=== PATIENT | male | born 1970 | race Caucasian/White ===

== ENCOUNTER 2018-05-21 17:54 | Emergency (ER) | payer MEDICAID ==
--- NOTE | 2018-05-21 18:19 | EDPHY ---
H & P Stated Complaint: ST, fever Source: Patient Exam Limitations: No limitations - Personal History Current Tetanus/Diphtheria Vaccine: Yes Current Tetanus Diphtheria and Acellular Pertussis (TDAP): Yes - Medical/Surgical History Hx Asthma: No Hx Chronic Respiratory Disease: No Hx Diabetes: No Hx Cardiac Disease: No Hx Renal Disease: No Hx Cirrhosis: No Hx Alcoholism: No Hx HIV/AIDS: No Hx Splenectomy or Spleen Trauma: No Other PMH: UC, - Social History Smoking Status: Never smoked Time Seen by Provider: 05/21/18 18:18 HPI/ROS: HPI: This is a 47-year-old male who presents with Chief Complaint: Sore throat, fever Location: body Quality: Fever Duration: 1-2 weeks Signs and Symptoms: + fever, no nausea, no vomiting, no diarrhea, no urinary symptoms, no chest pain, no shortness of breath, no wheezing, no cough, + sore throat, no neck stiffness, no joint pain, no swollen glands, no ear pain, no rash Timing: Acute, constant Severity: Moderate Context: Patient has a history of ulcerative colitis but has not been on any suppressive therapy for the last 5 years presents with 1-2 week history of fevers with a T-max of a 102.6 oral F, sore throat and raspy voice. Reports decreased food intake but drinking Gatorade. He complains of fatigue. Denies any neck stiffness, swollen glands, difficulty swallowing, drooling, joint pain , rash, chest pain, shortness of breath, cough, diarrhea. No recent foreign travel. Did not receive influenza vaccine this year. Patient recently moved to the area and has no primary care provider. Modifying Factors: Taking Tylenol p.m. With transient relief of pyrexia Comment: ROS: A comprehensive 10 system review of systems is otherwise negative aside from elements mentioned in the history of present illness. MEDICAL/SURGICAL/SOCIAL HISTORY: Medical history: Ulcerative colitis Surgical history: Denies Social history: Never smoked. Family history noncontributory. CONSTITUTIONAL: Nontoxic-appearing middle-aged white male, significant other at bedside, awake and alert, no obvious distress HEENT: Atraumatic and normocephalic, PERRL, EOMI. Nares patent; no rhinorrhea; no nasal mucosal edema. Tympanic membranes clear. Oropharynx clear, tonsils 1 + with no erythema; uvula midline; no exudate and moist pink mucosa. Airway patent. No lymphadenopathy. No meningismus. Cardiovascular: Normal S1/S2, tachycardia, regular rhythm, without murmur rub or gallop. PULMONARY/CHEST: Symmetrical and nontender. Clear to auscultation bilaterally. Good air movement. No accessory muscle usage. ABDOMEN: Soft, nondistended, nontender, no rebound, no guarding, no peritoneal signs, no masses or organomegaly. No CVAT. EXTREMITIES: 2/2 pulses, strength 5/5, no deformities, no clubbing, no cyanosis or edema. NEUROLOGICAL: no focal neuro deficits. GCS 15. SKIN: Warm and dry, no erythema. no rash. Good capillary refill. (Ara Park) Constitutional: Initial Vital Signs Temperature (C) 36.9 C 05/21/18 18:01 Heart Rate 151 H 05/21/18 18:01 Respiratory Rate 20 05/21/18 18:01 Blood Pressure 105/78 05/21/18 18:01 O2 Sat (%) 97 05/21/18 18:01 O2 Delivery Mode Room Air Allergies/Adverse Reactions: acetaminophen [From NyQuil] Allergy (Verified 05/21/18 18:01) dextromethorphan [From NyQuil] Allergy (Verified 05/21/18 18:01) doxylamine [From NyQuil] Allergy (Verified 05/21/18 18:01) pseudoephedrine [From NyQuil] Allergy (Verified 05/21/18 18:01) Home Medications: Medication Instructions Recorded Omeprazole 05/21/18 Tylenol Cold-Flu Severe Liq 05/21/18 Medical Decision Making ED Course/Re-evaluation: Vital signs reviewed and show tachycardia with a heart rate of 151. Placed on residential monitor. Patient did not meet sepsis criteria. IV access and laboratory studies along with influenza swab and rapid strep test ordered Given 2 L normal saline, IV Toradol 30 mg, IV Decadron 10 mg Abdomen is soft and nontender and doubt surgical process and need for imaging. 0: Labs reviewed. Strep negative, WBC 14 K with left shift, lactic acid 2.3 , No signs of anemia/platelet dysfunction/ANGELLA/elevated LFTs/electrolyte imbalance. 1939: Influenza negative. 2009: Notified by tech that patient asking to eat food and drink liquids. Heart rate is in the low 90s but jumped up to the 130s with a ambulation. Patient will be given food and drink along with another L of normal saline for a total of 3 L 2115: Repeat lactic acid is 1.0 Vital signs greatly improved at discharge. It appears that patient has a viral syndrome and will be discharged home with supportive care. Referral to the [facility]. This patient was seen under the supervision of my secondary supervising physician. I evaluated care for this patient independently. Discussed this patient with Dr. Brantley who did not see the patient. (Ara Park) I did not see this patient while he was in the emergency department. However his care was discussed with the PA while the patient was in the department. I agree with treatment plan and management (Terry Brantley) Differential Diagnosis: Adult fever including but not limited to viral syndromes including influenza, urinary tract infection, pneumonia and sepsis. (Ara Park) - Data Points Laboratory Results: Laboratory Results 05/21/18 18:20 05/21/18 18:20 Medications Given: Discontinued Medications Dexamethasone (Decadron Injection) 10 mg IVP EDNOW ONE Stop: 05/21/18 18:31 Last Admin: 05/21/18 18:40 Dose: 10 mg Sodium Chloride (Ns) 1,000 mls @ 0 mls/hr IV ONCE ONE; Wide Open PRN Reason: Protocol Stop: 05/21/18 18:31 Last Admin: 05/21/18 18:40 Dose: 1,000 mls Sodium Chloride (Ns) 1,000 mls @ 0 mls/hr IV ONCE ONE; Wide Open PRN Reason: Protocol Stop: 05/21/18 18:31 Last Admin: 05/21/18 18:40 Dose: 1,000 mls Sodium Chloride (Ns) 1,000 mls @ 0 mls/hr IV EDNOW ONE; Wide Open PRN Reason: Protocol Stop: 05/21/18 20:11 Last Admin: 05/21/18 20:11 Dose: 1,000 mls Ketorolac Tromethamine (Toradol) 30 mg IVP EDNOW ONE Stop: 05/21/18 18:31 Last Admin: 05/21/18 18:40 Dose: 30 mg Departure - Departure Disposition: Home, Routine, Self-Care Clinical Impression: Viral syndrome Condition: Good Instructions: Viral Syndrome (ED) Additional Instructions: Consume a minimum of 8-10 glasses of water or electrolyte fluid replacement drinks that include Gatorade, Powerade, Pedialyte. Eat a bland diet for the next 48 hours and then slowly advance as tolerated. Take Tylenol 650 mg every 4 hours and/or Ibuprofen 600 mg every 8 hours with food as needed for pain. [facility] care. It is recommended that you follow-up in the next 7-10 days. Referrals: [facility],. [Clinic] - As per Instructions
[2018-05-21] MEDS ORDERED: KETOROLAC 30 MG/1 ML SDV IVP ONE (18:30)
[2018-05-21] MEDS ORDERED: DEXAMETHASONE 10 MG/ML VIAL IVP ONE (18:30)
[2018-05-21] MEDS ORDERED: NS 1,000 ML IV ONE ×4 (18:30→20:11)
[2018-05-21] MEDS ORDERED: DEXAMETHASONE 4 MG/ML VIAL ONE (18:32)
[2018-05-21 18:48] LABS: PLATELET COUNT 477 10^3/uL (150-400)
[2018-05-21 20:12] VITALS: BP 125/80
== END 2018-05-21 21:30 | disposition home or self-care (01) ==
DX: B34.9 Viral infection, unspecified (principal); E86.9 Volume depletion, unspecified; K51.90 Ulcerative colitis, unspecified, without complications
CPT/HCPCS: 96374; J1100; J1885

== ENCOUNTER 2018-05-26 21:44 | Inpatient (IN) | payer MEDICAID ==
[2018-05-26 22:23] LABS: PLATELET COUNT 502 10^3/uL (150-400)
--- NOTE | 2018-05-26 22:24 | EDPHY ---
HPI/HX/ROS/PE/MDM Narrative: CHIEF COMPLAINT: Fever, weakness HISTORY OF PRESENT ILLNESS: The patient is a 47 y/o male arriving with his daughter complaining of recurrent fever, sore throat, and weakness over the last 3 weeks. He first developed a sore throat later associated with a fever as high as 102F 1.5 weeks into his illness. Symptoms worsened and on 05/21/18, 5 days ago, he came into the ED for evaluation. His flu and step swabs were negative and he was treated with Decadron, Toradol, and IV fluids with improvement in symptoms. He continued to have a "low" sore throat and malaise, but the fever seemed to resolve until last night, when it spiked to 101F. He took Tylenol for his fever with temporary improvement. He currently feels anxious and extremely weak with aching abdominal pain sometimes into his testicles as well as nausea. He has had difficulty eating and drinking. No history of thyroid issues. No rash, cough, chills, chest pain, shortness of breath, palpitations, vomiting , diarrhea, blood in stool, urinary complaints, headache, lightheadedness. REVIEW OF SYSTEMS: Aside from elements discussed in the HPI, a comprehensive 10-point review of systems was reviewed and is negative. PAST MEDICAL HISTORY: Ulcerative colitis - no immunosuppressants. SOCIAL HISTORY: Daughter at bedside. Lives in [place]. Single. Prior medical records reviewed including ED visit 05/21/18 for fever and sore throat. VITAL SIGNS: Reviewed by me. HR 147, BP 88/73. GENERAL: Well-developed, well-nourished, anxious-appearing in no respiratory distress. HEENT: Atraumatic. Eyes: No icterus, no injection. Mouth: moist mucous membranes. No erythema or lesions. No tonsillar swelling. Neck: supple with no adenopathy. Mild tenderness over lower anterior neck with questionable fullness. LUNGS: Clear to auscultation bilaterally, no wheezes, rhonchi or rales. CARDIAC: Tachycardic regular rate and rhythm, no rubs, murmurs or gallops. ABDOMEN: Soft, nontender, nondistended. BACK: No CVA tenderness. EXTREMITIES: No trauma. No edema. Range of motion is normal throughout. NEURO: Alert and oriented, grossly nonfocal. SKIN: Warm and dry, no rash. PSYCHIATRIC: Normal mentation, no agitation. Portions of this note were transcribed by a medical record retrieval specialist. I personally performed a history, physical exam, medical decision making, and confirmed accuracy of information the transcribed note. ED Course: This is a 47 y/o male with a 3-week history of malaise who returns for the 2nd time in 5 days with fever, sore throat, and weakness. He is anxious-appearing, tachycardic, hypotensive, and has mild low anterior neck tenderness. His abdomen is benign. Presentation concerning for thyrotoxicosis vs. infectious process. Patient rules in for initial sepsis screening with hypotension, tachycardia, and reported fever at home. Plan for IV, sepsis labs, thyroid function panel, UA, chest x-ray, and symptomatic management. WBC elevated at 21. Lactate 2.8. Possible severe sepsis declared at 22:30. 2.1L IV NS ordered. Concern for abdominal process related to his UC or something like lymphoma. Consulted with Dr. Philip, radiology. Plan for abdominal CT and chest CT to evaluate pain at base of neck. Labs returning and concern for hyperthyroidism/ thyroid storm as cause of patinets symptoms. Free T4 significantly elevated, TSH low. Will give small dose of propanolol; at this time hr has trended lower and is at 100 range. No source of fever and no infection identified. Sepsis Evaluation: Patient presented to the Emergency Department with a possible infection based on throat pain and history of fever. No fever in ED. Patient was tachycardic and had a WBC greater than 12,000 along with elevated lactic acid. Received IVF bolus at 30cc/kg. Repeat lactic acid ordered. Will admit to hospitalist. No antibiotics administered at this time; no infectious etiology identified or suspected at this time. Critical care time spent by me, Dr. Souza, exclusively with this patient was 35 minutes, exclusive of PA time and exclusive of procedures. The organ system at risk was multisystem. Time spent in serial assessments of patient, discussion with patient and family, consideration of interventions, consultation with radiology, review of lab and imaging results. MDM: Diff dx considered included severe sepsis, pneumonia, pharyngitis, thyroid storm , hyperthyroidism. - Data Points Imaging Results: Imaging Impressions Chest X-Ray 05/26/18 22:09 Impression: Normal. Abdomen CT 05/26/18 22:28 Impression: Thickened aryepiglottic folds. Otherwise negative. 2 CT Abdomen and Pelvis With Contrast, 22:46 History: Fever, abdominal discomfort, history of ulcerative colitis, elevated white count Technique: 128 slice volumetric data set helical CT obtained through the abdomen and pelvis during bolus administration of 90 mL Isovue-300 nonionic contrast without complication. Images are reviewed on the computer workstation. Dose reduction techniques were utilized. Comparison: None Findings: Neither kidney is obstructed. There is a nonobstructive left lower pole renal calculus and a posterior right upper pole 13 x 11 low density cortical-medullary lesion with overlying peripheral cortical thinning (with average Hounsfield units of 60).. There is no evidence of active colitis, bowel obstruction, ascites or free air. Abdomen- The liver and spleen are normal in size. There are scattered small low- density lesions in the liver that likely represent incidental cysts. There is no intrahepatic biliary obstruction, hepatic abscess or dominant hepatic mass. There is no extrahepatic biliary dilatation. The gallbladder and pancreas. The adrenal glands and retroperitoneum look normal. There is mild mural atherosclerotic disease of the normal sized abdominal aorta. There is no retroperitoneal or mesenteric adenopathy. Pelvis: Urinary bladder looks normal. There is no pelvic adenopathy or free fluid. There is no retroperitoneal or inguinal adenopathy. The SI joints look normal. Impression: 1. No evidence for active colitis or bowel obstruction. 2. Nonsimple cystic right renal lesion. Recommend nonemergent MRI of the kidneys without and with contrast for further evaluation and correlation with urinalysis. Differential diagnosis includes transitional neoplasm, complex cyst and pyelonephritis. 3. Nonobstructive left nephrolithiasis. Results discussed with Dr. Souza at 11:18 PM General information for patients regarding this examination can be found at [email or web address]. If you have questions or comments about this report, please contact me at (hospital) or [phone] (cell). Chest CT 05/26/18 22:46 Impression: Thickened aryepiglottic folds. Otherwise negative. 2 CT Abdomen and Pelvis With Contrast, 22:46 History: Fever, abdominal discomfort, history of ulcerative colitis, elevated white count Technique: 128 slice volumetric data set helical CT obtained through the abdomen and pelvis during bolus administration of 90 mL Isovue-300 nonionic contrast without complication. Images are reviewed on the computer workstation. Dose reduction techniques were utilized. Comparison: None Findings: Neither kidney is obstructed. There is a nonobstructive left lower pole renal calculus and a posterior right upper pole 13 x 11 low density cortical-medullary lesion with overlying peripheral cortical thinning (with average Hounsfield units of 60).. There is no evidence of active colitis, bowel obstruction, ascites or free air. Abdomen- The liver and spleen are normal in size. There are scattered small low- density lesions in the liver that likely represent incidental cysts. There is no intrahepatic biliary obstruction, hepatic abscess or dominant hepatic mass. There is no extrahepatic biliary dilatation. The gallbladder and pancreas. The adrenal glands and retroperitoneum look normal. There is mild mural atherosclerotic disease of the normal sized abdominal aorta. There is no retroperitoneal or mesenteric adenopathy. Pelvis: Urinary bladder looks normal. There is no pelvic adenopathy or free fluid. There is no retroperitoneal or inguinal adenopathy. The SI joints look normal. Impression: 1. No evidence for active colitis or bowel obstruction. 2. Nonsimple cystic right renal lesion. Recommend nonemergent MRI of the kidneys without and with contrast for further evaluation and correlation with urinalysis. Differential diagnosis includes transitional neoplasm, complex cyst and pyelonephritis. 3. Nonobstructive left nephrolithiasis. Results discussed with Dr. Souza at 11:18 PM General information for patients regarding this examination can be found at [email or web address]. If you have questions or comments about this report, please contact me at (hospital) or [phone] (cell). Imaging: Discussed imaging studies w/ corporate licensed broker Radiologist, I viewed and interpreted images myself Laboratory Results: Laboratory Results 05/26/18 22:15 05/26/18 22:15 05/26/18 05/26/18 05/26/18 23:13 22:15 22:15 WBC 21.49 10^3/uL H 10^3/uL (3.80-9.50) RBC 4.58 10^6/uL 10^6/uL (4.40-6.38) Hgb 13.0 g/dL L g/dL (13.7-17.5) Hct 38.2 % L % (40.0-51.0) MCV 83.4 fL fL (81.5-99.8) MCH 28.4 pg pg (27.9-34.1) MCHC 34.0 g/dL g/dL (32.4-36.7) RDW 11.9 % % (11.5-15.2) Plt Count 502 10^3/uL H 10^3/uL (150-400) MPV 8.8 fL fL (8.7-11.7) Neut % (Auto) 73.1 % % (39.3-74.2) Lymph % (Auto) 16.0 % % (15.0-45.0) Parmer % (Auto) 9.8 % % (4.5-13.0) Eos % (Auto) 0.4 % L % (0.6-7.6) Baso % (Auto) 0.2 % L % (0.3-1.7) Nucleat RBC Rel Count 0.0 % % (0.0-0.2) Absolute Neuts (auto) 15.71 10^3/uL H 10^3/uL (1.70-6.50) Absolute Lymphs (auto) 3.44 10^3/uL H 10^3/uL (1.00-3.00) Absolute Monos (auto) 2.11 10^3/uL H 10^3/uL (0.30-0.80) Absolute Eos (auto) 0.09 10^3/uL 10^3/uL (0.03-0.40) Absolute Basos (auto) 0.04 10^3/uL 10^3/uL (0.02-0.10) Absolute Nucleated RBC 0.00 10^3/uL 10^3/uL (0-0.01) Immature Gran % 0.5 % % (0.0-1.1) Immature Gran # 0.11 10^3/uL H 10^3/uL (0.00-0.10) RBC/WBC/PLT Morphology TNP Platelet Estimate TNP PT 16.2 SEC H SEC (12.0-15.0) INR 1.28 H (0.83-1.16) APTT 28.4 SEC SEC (23.0-38.0) VBG Lactic Acid 1.6 mmol/L mmol/L (0.7-2.1) Sodium Potassium Chloride Carbon Dioxide Anion Gap BUN Creatinine Estimated GFR Glucose Calcium Total Bilirubin Conjugated Bilirubin Unconjugated Bilirubin AST ALT Alkaline Phosphatase Total Protein Albumin TSH Free T4 Thyroxine (T4) 05/26/18 05/26/18 22:15 22:15 WBC RBC Hgb Hct MCV MCH MCHC RDW Plt Count MPV Neut % (Auto) Lymph % (Auto) Parmer % (Auto) Eos % (Auto) Baso % (Auto) Nucleat RBC Rel Count Absolute Neuts (auto) Absolute Lymphs (auto) Absolute Monos (auto) Absolute Eos (auto) Absolute Basos (auto) Absolute Nucleated RBC Immature Gran % Immature Gran # RBC/WBC/PLT Morphology Platelet Estimate PT INR APTT VBG Lactic Acid 2.8 mmol/L H mmol/L (0.7-2.1) Sodium 136 mEq/L mEq/L (135-145) Potassium 4.3 mEq/L mEq/L (3.5-5.2) Chloride 100 mEq/L mEq/L (97-110) Carbon Dioxide 25 mEq/l mEq/l (22-31) Anion Gap 11 mEq/L mEq/L (6-14) BUN 14 mg/dL mg/dL (7-23) Creatinine 0.8 mg/dL mg/dL (0.7-1.3) Estimated GFR > 60 Glucose 123 mg/dL H mg/dL (70-100) Calcium 10.0 mg/dL mg/dL (8.5-10.4) Total Bilirubin 0.9 mg/dL mg/dL (0.1-1.4) Conjugated Bilirubin 0.2 mg/dL mg/dL (0.0-0.5) Unconjugated Bilirubin 0.7 mg/dL mg/dL (0.0-1.1) AST 19 IU/L IU/L (17-59) ALT 62 IU/L IU/L (21-72) Alkaline Phosphatase 95 IU/L IU/L (38-126) Total Protein 7.1 g/dL g/dL (6.3-8.2) Albumin 4.0 g/dL g/dL (3.5-5.0) TSH < 0.015 uIU/mL L uIU/mL (0.465-4.680) Free T4 5.74 ng/dL H ng/dL (0.59-2.19) Thyroxine (T4) 23.30 ug/dL H ug/dL (5.53-11.00) Medications Given: Discontinued Medications Sodium Chloride (Ns) 2,100 mls @ 4,200 mls/hr 30 ml/kg infuse over 30 min ( 2100 ml) IV EDNOW ONE PRN Reason: Protocol Stop: 05/26/18 22:58 Last Admin: 05/26/18 22:39 Dose: 2,100 mls Propranolol HCl (Inderal) 20 mg PO EDNOW ONE Stop: 05/26/18 23:22 Last Admin: 05/26/18 23:30 Dose: 20 mg General Time Seen by Provider: 05/26/18 22:04 Initial Vital Signs: Initial Vital Signs Temperature (C) 37.4 C 05/26/18 21:56 Heart Rate 147 H 05/26/18 21:56 Respiratory Rate 18 05/26/18 21:56 Blood Pressure 88/73 L 05/26/18 21:56 O2 Sat (%) 100 05/26/18 21:56 O2 Delivery Mode Room Air Allergies/Adverse Reactions: acetaminophen [From NyQuil] Allergy (Verified 05/21/18 18:01) dextromethorphan [From NyQuil] Allergy (Verified 05/21/18 18:01) doxylamine [From NyQuil] Allergy (Verified 05/21/18 18:01) pseudoephedrine [From NyQuil] Allergy (Verified 05/21/18 18:01) Home Medications: Medication Instructions Recorded Omeprazole 40 mg PO DAILY 05/21/18 Multivitamins [Multivitamin (*)] 1 each PO DAILY 05/27/18 Departure - Departure Disposition: [facility] Clinical Impression: Hyperthyroidism, r/o thyroid storm Fever Qualifiers: Fever type: due to other condition Qualified Code(s): R50.81 - Fever presenting with conditions classified elsewhere Condition: Good Report Scribed for: Gloria Souza Report Scribed by: Josefina Harris Date of Report: 05/26/18 Time of Report: 22:27
[2018-05-26] MEDS ORDERED: NS 2,100 ML IV ONE (22:29)
[2018-05-26 22:32] LABS: INR 1.28 (0.83-1.16); PROTIME(PATIENT) 16.2 SEC (12.0-15.0)
[2018-05-26] MEDS ORDERED: IOPAMIDOL (ISOVUE-300) 100 ML BTL ONE (22:38)
[2018-05-26] MEDS ORDERED: PROPRANOLOL HCL 20 MG TAB PO ONE (23:21)
[2018-05-27] MEDS ORDERED: LORazepam 0.5 MG TAB PO PRN (00:53)
[2018-05-27] MEDS ORDERED: ONDANSETRON DISINTEGRATING 4 MG TAB PO PRN (00:53)
[2018-05-27] MEDS: METHIMAZOLE 5 MG TAB PO SCH ×4 (01:34→21:17)
[2018-05-27] MEDS: NS 1,000 ML IV SCH ×3 (01:42→19:09)
--- NOTE | 2018-05-27 02:17 | PDGENHP ---
History and Physical - Chief Complaint Fever, abdominal pain - History of Present Illness Source-patient provides history appears reliable. EMR was reviewed and case discussed with ED provider. HPI-this is a very pleasant 47-year-old gentleman with a past medical history significant for GERD and ulcerative colitis without any recent flares who presents emergency department today with complaints of 3 weeks of feeling quite fatigued, fevers and over the past week increasing abdominal pain and cramping. Patient was seen in the emergency department on 05/21/2018 with complaints of muscle aching abdominal pain fevers. Flu and strep were negative. Additionally patient had been complaining of some lower neck pain and discomfort. He also notes that over the past few weeks he has had increasing hoarseness without any dysphagia or odynophagia. He has had approximately 20 lb weight loss over the last 3 weeks without intention. He notes increasing anxiety and stress due to his illness. He is complaining of diffuse generalized weakness and fatigue. Patient denies any chest pain, palpitations, shortness of breath. He denies any nausea vomiting or diarrhea. No melena or hematochezia. Patient denies any additional respiratory symptoms including cough, rhinorrhea, sore throat. He notes that his pain is more anterior lower neck. He has not had any difficulties with swallowing. History Information - Allergies/Home Medication List Allergies/Adverse Reactions: acetaminophen [From NyQuil] Allergy (Verified 05/21/18 18:01) dextromethorphan [From NyQuil] Allergy (Verified 05/21/18 18:01) doxylamine [From NyQuil] Allergy (Verified 05/21/18 18:01) pseudoephedrine [From NyQuil] Allergy (Verified 05/21/18 18:01) Home Medications: Omeprazole 05/21/18 [Last Taken Unknown] I have personally reviewed and updated: family history, medical history, social history, surgical history - Past Medical History Additional medical history: Ulcerative colitis, GERD, history of skin on his abdomen that was removed patient cannot recall name of the cancer.. - Surgical History Additional surgical history: Colonoscopy - Family History Additional family history: No family history of thyroid disease. Father with history HTN in his 70s - Social History Smoking Status: Never smoked Alcohol Use: Rarely Drug Use: Marijuana (Occasional) Additional social history: Patient lives alone. He has a daughter who lives in [place] was at bedside in the ED. Cor status-full Review of Systems Review of Systems: ROS: 10pt was reviewed & negative except for what was stated in HPI & below Constitutional: Reports: chills, fever, weight loss (20 lb in 3 weeks.) EENMT: Reports: other (Lower neck swelling and pain left greater than right. Hoarseness. ). Denies: blurred vision, double vision, throat swelling Cardiac: Reports: no symptoms Respiratory: Reports: no symptoms Gastrointestinal: Reports: abdominal pain, nausea. Denies: constipation, diarrhea Genitourinary: Reports: other (Patient reports some mild testicular sensitivity and pain now resolved.). Denies: dysuria, hematuria Muscolosketal: Reports: joint pain, muscle pain, other (Myalgias) Skin: Reports: no symptoms Neurological: Reports: anxiety, weakness (Generalized weakness.). Denies: depressed, numbness, tingling Hematologic/Lymphatic: Reports: no symptoms Immunologic/Allergy: Reports: no symptoms Physical Exam Physical Exam: Temp Pulse Resp BP Pulse Ox 37.3 C 84 16 116/70 97 05/27/18 01:08 05/27/18 01:08 05/27/18 01:08 05/27/18 01:08 05/27/18 01:08 Constitutional: no apparent distress, uncomfortable, cachectic, other (Patient appears significantly fatigued but nontoxic.. He is awake and pleasant and cooperative.) Eyes: PERRL (Slightly decreased reactivity light bilaterally but symmetric.), anicteric sclera, EOMI, No scleral injection Ears, Nose, Mouth, Throat: dry mucous membranes, No poor dentition (Dentition in Fair condition) Cardiovascular: no murmur, rub, or gallop, pulses symmetric bilaterally, tachycardia, other (Regular rhythm.), No edema Peripheral Pulses: 1+: dorsalis-pedis (R), dorsalis-pedis (L) Respiratory: no respiratory distress, no rales or rhonchi, clear to auscultation , No expiratory wheeze, No inspiratory crackles, No respiratory distress Gastrointestinal: tenderness (Abdomen is soft with Diffuse tenderness.), distension, other (Hypoactive bowel sounds.), No soft, non-tender abdomen, No guarding, No rebound Genitourinary: no bladder tenderness, No hull in urethra Lab Data & Imaging Review 05/26/18 22:15 05/26/18 22:15 WBC 21.49 10^3/uL (3.80-9.50) H 05/26/18 22:15 RBC 4.58 10^6/uL (4.40-6.38) 05/26/18 22:15 Hgb 13.0 g/dL (13.7-17.5) L 05/26/18 22:15 Hct 38.2 % (40.0-51.0) L 05/26/18 22:15 MCV 83.4 fL (81.5-99.8) 05/26/18 22:15 MCH 28.4 pg (27.9-34.1) 05/26/18 22:15 MCHC 34.0 g/dL (32.4-36.7) 05/26/18 22:15 RDW 11.9 % (11.5-15.2) 05/26/18 22:15 Plt Count 502 10^3/uL (150-400) H 05/26/18 22:15 MPV 8.8 fL (8.7-11.7) 05/26/18 22:15 Neut % (Auto) 73.1 % (39.3-74.2) 05/26/18 22:15 Lymph % (Auto) 16.0 % (15.0-45.0) 05/26/18 22:15 Thayer % (Auto) 9.8 % (4.5-13.0) 05/26/18 22:15 Eos % (Auto) 0.4 % (0.6-7.6) L 05/26/18 22:15 Baso % (Auto) 0.2 % (0.3-1.7) L 05/26/18 22:15 Nucleat RBC Rel Count 0.0 % (0.0-0.2) 05/26/18 22:15 Absolute Neuts (auto) 15.71 10^3/uL (1.70-6.50) H 05/26/18 22:15 Absolute Lymphs (auto) 3.44 10^3/uL (1.00-3.00) H 05/26/18 22:15 Absolute Monos (auto) 2.11 10^3/uL (0.30-0.80) H 12/16/18 22:15 Absolute Eos (auto) 0.09 10^3/uL (0.03-0.40) 05/26/18 22:15 Absolute Basos (auto) 0.04 10^3/uL (0.02-0.10) 05/26/18 22:15 Absolute Nucleated RBC 0.00 10^3/uL (0-0.01) 05/26/18 22:15 Immature Gran % 0.5 % (0.0-1.1) 05/26/18 22:15 Immature Gran # 0.11 10^3/uL (0.00-0.10) H 05/26/18 22:15 RBC/WBC/PLT Morphology TNP 05/26/18 22:15 Platelet Estimate TNP 05/26/18 22:15 PT 16.2 SEC (12.0-15.0) H 05/26/18 22:15 INR 1.28 (0.83-1.16) H 05/26/18 22:15 APTT 28.4 SEC (23.0-38.0) 05/26/18 22:15 VBG Lactic Acid 1.6 mmol/L (0.7-2.1) 05/26/18 23:13 Sodium 136 mEq/L (135-145) 05/26/18 22:15 Potassium 4.3 mEq/L (3.5-5.2) 05/26/18 22:15 Chloride 100 mEq/L (97-110) 05/26/18 22:15 Carbon Dioxide 25 mEq/l (22-31) 05/26/18 22:15 Anion Gap 11 mEq/L (6-14) 05/26/18 22:15 BUN 14 mg/dL (7-23) 05/26/18 22:15 Creatinine 0.8 mg/dL (0.7-1.3) 05/26/18 22:15 Estimated GFR > 60 05/26/18 22:15 Glucose 123 mg/dL (70-100) H 05/26/18 22:15 Calcium 10.0 mg/dL (8.5-10.4) 05/26/18 22:15 Total Bilirubin 0.9 mg/dL (0.1-1.4) 05/26/18 22:15 Conjugated Bilirubin 0.2 mg/dL (0.0-0.5) 05/26/18 22:15 Unconjugated Bilirubin 0.7 mg/dL (0.0-1.1) 05/26/18 22:15 AST 19 IU/L (17-59) 05/26/18 22:15 ALT 62 IU/L (21-72) 05/26/18 22:15 Alkaline Phosphatase 95 IU/L (38-126) 05/26/18 22:15 Troponin I < 0.012 ng/mL (0.000-0.034) 05/26/18 22:28 Total Protein 7.1 g/dL (6.3-8.2) 05/26/18 22:15 Albumin 4.0 g/dL (3.5-5.0) 05/26/18 22:15 TSH < 0.015 uIU/mL (0.465-4.680) L 05/26/18 22:15 Free T4 5.74 ng/dL (0.59-2.19) H 05/26/18 22:15 Thyroxine (T4) 23.30 ug/dL (5.53-11.00) H 05/26/18 22:15 Urine Color PALE YELLOW 05/26/18 23:25 Urine Appearance CLEAR 05/26/18 23:25 Urine pH 8.0 (5.0-7.5) H 05/26/18 23:25 Ur Specific [place] 1.029 (1.002-1.030) 05/26/18 23:25 Urine Protein NEGATIVE (NEGATIVE) 05/26/18 23:25 Urine Ketones NEGATIVE (NEGATIVE) 05/26/18 23:25 Urine Blood NEGATIVE (NEGATIVE) 05/26/18 23:25 Urine Nitrate NEGATIVE (NEGATIVE) 05/26/18 23:25 Urine Bilirubin NEGATIVE (NEGATIVE) 05/26/18 23:25 Urine Urobilinogen NEGATIVE EU (0.2-1.0) 05/26/18 23:25 Ur Leukocyte Esterase NEGATIVE (NEGATIVE) 05/26/18 23:25 Urine RBC 1-3 /hpf (0-3) 05/26/18 23:25 Urine WBC 1-3 /hpf (0-3) 05/26/18 23:25 Ur Epithelial Cells NONE SEEN /lpf (NONE-1+) 05/26/18 23:25 Urine Glucose NEGATIVE (NEGATIVE) 05/26/18 23:25 Imaging Review: Chest, PA and Lateral History: Sepsis, infection Comparison: None Findings: The patient has taken in an excellent inspiration. Lungs are clear, without infiltrate or consolidation. Heart size and pulmonary vascularity are normal. There is no adenopathy or mass lesion. There is no pleural effusion or pneumothorax. Bones are unremarkable for age. There is no free air beneath either hemidiaphragm. Impression: Normal. Dictated By: Troy Philip MD 1. CT Scan of the Chest (With Contrast), 22:46 Clinical Indications: Fever, throat pain, elevated white count, history of ulcerative colitis Technique: During power injection of 90 mL Isovue 300 intravenously, multidetector [address] imaging was performed from the oropharynx to the diaphragm. The radiologist manipulated images at the computer workstation. Dose reduction techniques were utilized. Findings: The cervical airway, esophagus and epiglottis look normal. Both aryepiglottic folds are thick. The larynx looks normal. There is no prevertebral soft tissue swelling or abscess. There is degenerative hypertrophic change of the left C5-C6 and C6-C7 uncovertebral joints. The lungs are clear and no pleural effusions are found. Heart size is normal and there is no evidence of a pericardial effusion. There are no masses in the lungs, mediastinum, and pleura. There is no pneumonia or interstitial lung disease. The great vessels are normal. The thoracic aorta has a normal contour. Impression: Thickened aryepiglottic folds. Otherwise negative. 2 CT Abdomen and Pelvis With Contrast, 22:46 History: Fever, abdominal discomfort, history of ulcerative colitis, elevated white count Technique: 128 slice volumetric data set helical CT obtained through the abdomen and pelvis during bolus administration of 90 mL Isovue-300 nonionic contrast without complication. Images are reviewed on the computer workstation. Dose reduction techniques were utilized. Comparison: None Findings: Neither kidney is obstructed. There is a nonobstructive left lower pole renal calculus and a posterior right upper pole 13 x 11 low density cortical-medullary lesion with overlying peripheral cortical thinning (with average Hounsfield units of 60).. There is no evidence of active colitis, bowel obstruction, ascites or free air. Abdomen- The liver and spleen are normal in size. There are scattered small low- density lesions in the liver that likely represent incidental cysts. There is no intrahepatic biliary obstruction, hepatic abscess or dominant hepatic mass. There is no extrahepatic biliary dilatation. The gallbladder and pancreas. The adrenal glands and retroperitoneum look normal. There is mild mural atherosclerotic disease of the normal sized abdominal aorta. There is no retroperitoneal or mesenteric adenopathy. Pelvis: Urinary bladder looks normal. There is no pelvic adenopathy or free fluid. There is no retroperitoneal or inguinal adenopathy. The SI joints look normal. Impression: 1. No evidence for active colitis or bowel obstruction. 2. Nonsimple cystic right renal lesion. Recommend nonemergent MRI of the kidneys without and with contrast for further evaluation and correlation with urinalysis. Differential diagnosis includes transitional neoplasm, complex cyst and pyelonephritis. 3. Nonobstructive left nephrolithiasis. Results discussed with Dr. Souza at 11:18 PM General information for patients regarding this examination can be found at [email or web address]. If you have questions or comments about this report, please contact me at [phone] (hospital) or [phone] (cell). Dictated By: Troy Philip MD EKG additional interpertation: sinus tachycardia 100s. nonspecific IVCD. ST elevation 2/2 repol. QTc. 511 Assessment & Plan Assessment: Pleasant 47-year-old male with a history of ulcerative colitis and GERD who presents emergency department with complaints of anterior low neck pain, fevers and abdominal pain. # hyperthyroidism - patient with complaints of intermittent fevers although he has been afebrile since admission. He also has a leukocytosis and tachycardia. His initial blood pressure was slightly low head did respond appropriately to IV fluids. Patient does appear dehydrated. He is in sinus tachycardia. Blood pressures are not significantly elevated. I do not believe this patient to be in thyroid storm at this time but is having symptoms related to hyperthyroidism which is newly diagnosed. Patient received propranolol in the emergency department which will continue three times daily. Will also start a dose of methimazole. Continue with aggressive IV fluid hydration. Patient with some diffuse mild enlargement of his thyroid. No palpable nodules or goiter. Patient with a minimal tenderness on the left thyroid. Patient will require a thyroid uptake scan at some point but I do not believe this needs to be done emergently now that he is on treatment. Additionally patient did get contrast loading for his CT studies which may cause a transient exacerbation of his symptoms to the iodine load. I did advise the patient cannot identify cause of patient's hyperthyroidism without iodine uptake study. Patient will need to establish care with a primary care provider and endocrinology. # dehydration - improved with IV fluids continue with supplementation overnight. Continue to encourage oral intake. # fevers and leukocytosis - no recorded fevers since admission. Patient does have a leukocytosis to 20,000 however I do feel this is likely reactive in setting of his hyperthyroidism. CT abdomen and pelvis without any evidence of acute infection. UA is negative for evidence of infection also. Could consider a viral type syndrome however patient denies any upper respiratory symptoms at all in the last several weeks he has been complaining of this "sore throat" however he actually points that it is anterior to his throat that he also reports started along with his hoarseness. Additionally previous workup included flu and strep studies that were both negative. # lactic acidosis - likely secondary to dehydration. Repeat lactate is within normal limits at this time. IV fluids as noted above. # anemia - anemia likely of chronic disease the versus chronic blood loss with history of ulcerative colitis. No evidence of active bleeding at this time. Patient can follow up with his primary care provider for addition had. # hyperglycemia - minimally elevated nonfasting study. No previous history of diabetes. Continue to monitor. No need for insulin therapy at this time. # right kidney cyst - noted to be abnormal. With recommendations for additional so non emergent MRI studies. Patient was quite fatigued during the interview and so I had was not able to get into further detail regarding this finding as we are focusing on his hyperthyroid symptoms. Will need to address with tpatient and recommend outpatient studies. Chronic medical issues # GERD - continue patient's home PPI. # ulcerative colitis - no evidence of acute changes on CT abdomen pelvis. Patient has not had any exacerbation report of hematochezia or melena. Supportive care for his abdominal pain including rehydration. FEN - continue with aggressive IV fluid hydration. Patient's blood pressures have responded appropriately. He continues to appear dehydrated. Electrolyte monitoring replacement if needed. Continue diet as tolerated. PPX-SCDs. Consider anticoagulation if patient should stay additional day. Overall risk for DVT PE is low. Cor status-full Disposition-patient admitted to observation status at this time pending his initial response to propranolol, methimazole and rehydration.
[2018-05-27] MEDS: oxyCODONE IR 5 MG TAB PO PRN (04:22)
[2018-05-27 05:38] LABS: PLATELET COUNT 402 10^3/uL (150-400)
[2018-05-27] MEDS ORDERED: PANTOPRAZOLE SODIUM 40 MG TAB PO SCH (09:00)
[2018-05-27] MEDS ORDERED: PHENOL 177 ML THROAT SPRAY PO PRN (09:21)
[2018-05-27] MEDS: traMADol 50 MG TAB PO PRN (10:22)
[2018-05-27] MEDS ORDERED: METHIMAZOLE 5 MG TAB PO SCH ×2 (10:37→10:38)
--- NOTE | 2018-05-27 10:42 | HOSPPROG ---
Hospitalist Progress Note Assessment/Plan: # hyperthyroid - suspect thyroiditis d/t thyroid pain, no ocular s/sx; i note he also has UC thought; i don't think he has thyroid storm - check TRAb - cont methimazole (increase dose to 20mg TID - cont propranolol 20mg TID (limited by blood pressure) - will try toradol for neck pain - call placed to endocrinology # fever/leukocytosis - suspect d/t above process; infectious w/u negative thus far; hold abx at this time # complex renal cyst - needs f/u MRI # lactic acidosis - resolved # anemia - unclear baseline # GERD - PPI # UC - stable Subjective: still feels poorly and quite weak; Objective: Vital Signs Temp Pulse Resp BP Pulse Ox 37.3 C 107 H 18 114/70 97 05/27/18 08:28 05/27/18 08:28 05/27/18 08:28 05/27/18 08:28 05/27/18 08:28 Laboratory Results 05/27/18 05:10 05/27/18 05:10 05/26/18 05/27/18 05/28/18 05:59 05:59 05:59 Intake Total 2350 Output Total 250 700 Balance 2100 -700 PT 16.2 SEC (12.0-15.0) H 05/26/18 22:15 INR 1.28 (0.83-1.16) H 05/26/18 22:15 chart reviewed left message for Dr Sage 35 minutes of prolonged, direct patient care time - Physical Exam Constitutional: uncomfortable Ears, Nose, Mouth, Throat: other (thyroid ) Cardiovascular: no murmur, rub, or gallop, tachycardia Respiratory: no respiratory distress, no rales or rhonchi, clear to auscultation Gastrointestinal: normoactive bowel sounds, soft, non-tender abdomen, no palpable masses ICD10 Worksheet Patient Problems: Problems Problem Status Onset Hyperthyroidism Acute
[2018-05-27] MEDS ORDERED: KETOROLAC 30 MG/1 ML SDV IVP ONE (11:30)
[2018-05-27] MEDS: ONDANSETRON 4 MG/2 ML VIAL IVP PRN ×2 (12:16→19:08)
[2018-05-27] MEDS: PROPRANOLOL HCL 20 MG TAB PO SCH ×3 (12:49→21:16)
[2018-05-27] MEDS: PANTOPRAZOLE SODIUM 40 MG TAB PO SCH (14:40)
--- NOTE | 2018-05-27 17:50 | PDMN ---
Medical Necessity Medical necessity: Pt meets IP criteria as of 05/27/2018 per and MCG MG-SIC ( Systemic Condition); est los > 2 mn for ongoing tx and eval of hyperthyroid causing tachycardia, fever, and leukocytosis; requiring IVF, additional workup, and medication management.
[2018-05-27] MEDS ORDERED: PROMETHAZINE HCL 25 MG/ML INJ IVP PRN (20:50)
[2018-05-28] MEDS: METHIMAZOLE 5 MG TAB PO SCH ×6 (01:02→21:23)
[2018-05-28] MEDS: traMADol 50 MG TAB PO PRN (05:14)
[2018-05-28 09:09] LABS: PLATELET COUNT 328 10^3/uL (150-400)
[2018-05-28] MEDS: PANTOPRAZOLE SODIUM 40 MG TAB PO SCH (10:32)
[2018-05-28] MEDS: PROPRANOLOL HCL 20 MG TAB PO SCH ×3 (10:34→21:23)
--- NOTE | 2018-05-28 12:14 | HOSPPROG ---
Hospitalist Progress Note Assessment/Plan: # hyperthyroid - suspect thyroiditis d/t thyroid pain, no ocular s/sx; i note he also has UC thought; i don't think he has thyroid storm - HR and WBC down today - discussed with Dr Sage - TRAb pending - cont methimazole at 10mg Q4 - cont propranolol 20mg TID (limited by blood pressure) - schedule APAP and ibp today for neck pain # fever/leukocytosis - suspect d/t above process; infectious w/u negative thus far; hold abx at this time # complex renal cyst - needs f/u MRI; consider while here as he has no PCP # lactic acidosis - resolved # anemia - unclear baseline # GERD - PPI # UC - stable Subjective: still feels very poorly; gets SOB with mininal exertion Objective: Vital Signs Temp Pulse Resp BP Pulse Ox 37.2 C 103 H 16 116/66 94 05/28/18 07:34 05/28/18 10:34 05/28/18 07:34 05/28/18 10:34 05/28/18 07:34 Laboratory Results 05/28/18 08:29 05/28/18 08:29 05/27/18 05/28/18 05/29/18 05:59 05:59 05:59 Intake Total 3306 Output Total 1000 Balance 2306 PT 16.2 SEC (12.0-15.0) H 05/26/18 22:15 INR 1.28 (0.83-1.16) H 05/26/18 22:15 - Physical Exam Constitutional: uncomfortable Cardiovascular: regular rate and rhythym, no murmur, rub, or gallop Respiratory: no respiratory distress, no rales or rhonchi, clear to auscultation Gastrointestinal: normoactive bowel sounds, soft, non-tender abdomen, no palpable masses ICD10 Worksheet Patient Problems: Problems Problem Status Onset Hyperthyroidism Acute
[2018-05-28] MEDS: IBUPROFEN 600 MG TAB PO SCH ×2 (12:23→18:24)
--- NOTE | 2018-05-28 13:29 | ASMTCMCOM ---
CM Note CM Note Notes: Patient plan of care reviewed in am rounds. He is a 47 year old male with thyrotoxicosis and reports to his RN he does not feel significantly improved. Independent with ADL's no current needs anticipated. Likely dc to home tomorrow. CM available should needs arise. Plan: home no needs. Date Signed: 05/28/2018 01:29 PM Electronically Signed By:Lorie Orosco RN
[2018-05-28] MEDS: ACETAMINOPHEN 500 MG TAB PO SCH ×2 (15:39→21:23)
--- NOTE | 2018-05-28 22:12 | CPEKG ---
Test Reason : OPEN Blood Pressure : / mmHG Vent. Rate : 103 BPM Atrial Rate : 103 BPM P-R Int : 135 ms QRS Dur : 118 ms QT Int : 390 ms P-R-T Axes : 047 130 016 degrees QTc Int : 511 ms Sinus tachycardia Nonspecific intraventricular conduction delay ST elev, probable normal early repol pattern Confirmed by Gloria Souza ([id number]) on 05/28/2018 10:11:30 PM Referred By: Confirmed By:Gloria Souza
[2018-05-29] MEDS: METHIMAZOLE 5 MG TAB PO SCH ×6 (00:52→21:23)
[2018-05-29] MEDS: IBUPROFEN 600 MG TAB PO SCH ×3 (00:52→14:23)
[2018-05-29 05:26] LABS: PLATELET COUNT 345 10^3/uL (150-400)
[2018-05-29] MEDS: ACETAMINOPHEN 500 MG TAB PO SCH (06:12)
[2018-05-29] MEDS: PANTOPRAZOLE SODIUM 40 MG TAB PO SCH (11:44)
[2018-05-29] MEDS: PROPRANOLOL HCL 20 MG TAB PO SCH ×3 (11:44→21:23)
[2018-05-29] MEDS ORDERED: ACETAMINOPHEN 325 MG TAB PO PRN (13:52)
[2018-05-29] MEDS ORDERED: IBUPROFEN 600 MG TAB PO PRN (13:52)
--- NOTE | 2018-05-29 13:52 | HOSPPROG ---
Hospitalist Progress Note Assessment/Plan: # hyperthyroid - suspect thyroiditis d/t thyroid pain, no ocular s/sx; i note he also has UC thought; i don't think he has thyroid storm - HR and WBC down today - team discussed with Dr Sage on admission - TRAb pending - cont methimazole at 10mg Q4 - cont propranolol 20mg TID (limited by blood pressure) - APAP and ibp PRN. # fever/leukocytosis - suspect d/t above process; infectious w/u negative thus far; hold abx at this time # complex renal cyst - needs f/u MRI; consider while here as he has no PCP # lactic acidosis - resolved #Dehydration # anemia - unclear baseline # GERD - PPI. Will change to BID # UC - stable Plan: Start IVF obtain PC Stop scheduled Tylenol and Ibuprofen and determine if fever still present for now, no abx stop Ativan as it caused him confusion Subjective: feels out of it as was given a benzo last night. afebrile but is on scheduled meds Objective: Vital Signs Temp Pulse Resp BP Pulse Ox 36.8 C 72 16 118/75 96 05/29/18 12:00 05/29/18 12:00 05/29/18 12:00 05/29/18 12:00 05/29/18 12:00 Laboratory Results 05/29/18 04:59 05/29/18 04:59 05/28/18 05/29/18 05/30/18 05:59 05:59 05:59 Intake Total 3306 500 Output Total 1000 200 Balance 2306 300 PT 16.2 SEC (12.0-15.0) H 05/26/18 22:15 INR 1.28 (0.83-1.16) H 05/26/18 22:15 - Physical Exam Constitutional: no apparent distress Eyes: PERRL, EOMI Ears, Nose, Mouth, Throat: hearing normal, dry mucous membranes Cardiovascular: regular rate and rhythym Respiratory: no respiratory distress, no rales or rhonchi, clear to auscultation Gastrointestinal: normoactive bowel sounds, soft, non-tender abdomen Skin: warm Neurologic: AAOx3 Psychiatric: interacting appropriately, not anxious, not encephalopathic Lymph, Heme, Immunologic: No petechiae ICD10 Worksheet Patient Problems: Problems Problem Status Onset Hyperthyroidism Acute
--- NOTE | 2018-05-29 14:36 | ASMTCMCOM ---
CM Note CM Note Notes: Plan of care reviewed in rounds. Still symptomatic from thyrotoxicosis. CM to continue to follow for needs. Plan: Likely no needs at discharge. Date Signed: 05/29/2018 02:35 PM Electronically Signed By:Lorie Orosco RN
[2018-05-29] MEDS ORDERED: PANTOPRAZOLE SODIUM 40 MG TAB PO SCH (21:00)
[2018-05-29] MEDS: POLYETHYLENE GLYCOL 3350 17 GM PKT PO SCH (21:19)
[2018-05-29] MEDS: DOCUSATE SODIUM 100 MG CAP PO SCH (22:59)
[2018-05-30] MEDS: NS 1,000 ML IV SCH (01:52)
[2018-05-30] MEDS: METHIMAZOLE 5 MG TAB PO SCH ×6 (03:04→21:57)
[2018-05-30] MEDS ORDERED: OMEPRAZOLE 20 MG PO SCH (09:00)
[2018-05-30] MEDS: PROPRANOLOL HCL 20 MG TAB PO SCH ×3 (09:45→21:57)
[2018-05-30] MEDS: DOCUSATE SODIUM 100 MG CAP PO SCH ×2 (09:47→21:57)
[2018-05-30] MEDS: POLYETHYLENE GLYCOL 3350 17 GM PKT PO SCH (10:17)
--- NOTE | 2018-05-30 13:24 | HOSPPROG ---
Hospitalist Progress Note Assessment/Plan: # hyperthyroid - suspect thyroiditis d/t thyroid pain, no ocular s/sx; i note he also has UC thought; i don't think he has thyroid storm - HR and WBC down today - team discussed with Dr Sage on admission. I will call Dr. Sage today - TRAb negative - cont methimazole at 10mg Q4 - cont propranolol 20mg TID (limited by blood pressure) - APAP and ibp PRN. # fever/leukocytosis - suspect d/t above process -no further piter at this time # complex renal cyst - needs f/u MRI; will order # lactic acidosis - resolved #Dehydration, improving # anemia - unclear baseline # GERD - PPI. Will change to BID # UC - stable, has not been on medications for 3 years. 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 Can likely obtain radioactive iodine uptake scan Subjective: feels slightly better, but not at baseline. no cp or sob. feels diaphoretic intermittently. decreased appetite Objective: Vital Signs Temp Pulse Resp BP Pulse Ox 37.1 C 100 20 127/74 H 96 05/30/18 08:00 05/30/18 09:45 05/30/18 08:00 05/30/18 09:45 05/30/18 08:00 Laboratory Results 05/29/18 04:59 05/29/18 04:59 05/29/18 05/30/18 05/31/18 05:59 05:59 05:59 Intake Total 500 1606 Output Total 200 350 Balance 300 1256 PT 16.2 SEC (12.0-15.0) H 05/26/18 22:15 INR 1.28 (0.83-1.16) H 05/26/18 22:15 - Physical Exam Constitutional: no apparent distress Eyes: PERRL Ears, Nose, Mouth, Throat: moist mucous membranes, hearing normal, other (no palapable thyroid nodule. non tender to palpation) Cardiovascular: regular rate and rhythym, no murmur, rub, or gallop Respiratory: no respiratory distress Gastrointestinal: normoactive bowel sounds, soft, non-tender abdomen Skin: warm Neurologic: AAOx3 Psychiatric: interacting appropriately, not anxious, not encephalopathic Lymph, Heme, Immunologic: No petechiae ICD10 Worksheet Patient Problems: Problems Problem Status Onset Hyperthyroidism Acute
[2018-05-30] MEDS ORDERED: PANTOPRAZOLE SODIUM 40 MG TAB PO SCH (13:30)
[2018-05-30] MEDS: traMADol 50 MG TAB PO PRN (18:13)
[2018-05-30] MEDS ORDERED: GADOBUTROL 10 ML VIAL IVP ONE (19:42)
[2018-05-30] MEDS: OMEPRAZOLE PO SCH (22:03)
[2018-05-31] MEDS: METHIMAZOLE 5 MG TAB PO SCH ×6 (02:02→22:59)
[2018-05-31] MEDS: traMADol 50 MG TAB PO PRN (02:05)
[2018-05-31] MEDS: oxyCODONE IR 5 MG TAB PO PRN (06:05)
[2018-05-31] MEDS: NS 1,000 ML IV SCH (06:06)
[2018-05-31] MEDS: PROPRANOLOL HCL 20 MG TAB PO SCH ×3 (11:52→22:16)
[2018-05-31] MEDS: POLYETHYLENE GLYCOL 3350 17 GM PKT PO SCH (11:52)
[2018-05-31] MEDS: DOCUSATE SODIUM 100 MG CAP PO SCH ×2 (11:53→21:02)
[2018-05-31] MEDS: OMEPRAZOLE PO SCH ×2 (11:53→21:04)
--- NOTE | 2018-05-31 15:39 | ASMTCMCOM ---
CM Note CM Note Notes: Plan of care reviewed in rounds. CM contacted Janna's office to set up appointment but patient needs to contact Dr Saldivar early June. I have made f/u appointment with Dr. Mazariegos at [facility] as he has no PCP and needs to establish care. He is informed of required documentation and check in times at the Clinic. CM available should other needs arise. Plan: Likely home independent when medically cleared for discharge. Date Signed: 05/31/2018 03:39 PM Electronically Signed By:Lorie Orosco RN
[2018-05-31] MEDS: ONDANSETRON 4 MG/2 ML VIAL IVP PRN (16:04)
--- NOTE | 2018-05-31 16:49 | HOSPPROG ---
Hospitalist Progress Note Assessment/Plan: # hyperthyroid - suspect thyroiditis d/t thyroid pain, no ocular s/sx; i note he also has UC thought; i don't think he has thyroid storm - HR and WBC down today - team discussed with Dr Sage - TRAb negative - cont methimazole at 10mg Q4 - cont propranolol 20mg TID (limited by blood pressure) - APAP and ibp PRN. -start Prednisone today # fever/leukocytosis - suspect d/t above process -no further piter at this time # complex renal cyst - needs f/u MRI; will order # lactic acidosis - resolved #Dehydration, improving # anemia - unclear baseline # GERD - PPI. Will change to BID # UC - stable, has not been on medications for 3 years. Does not have a litigation secretary in the [place] area Plan: stop IVF start Prednisone obtain thyroid US cannot obtain radioactive iodine scan d/w Endocrinology Subjective: no cp or sob. some nausea earlier Objective: Vital Signs Temp Pulse Resp BP Pulse Ox 36.8 C 72 16 130/77 H 96 05/31/18 16:26 05/31/18 16:26 05/31/18 16:26 05/31/18 16:26 05/31/18 16:26 Laboratory Results 05/29/18 04:59 05/29/18 04:59 05/30/18 05/31/18 06/01/18 05:59 05:59 05:59 Intake Total 1606 700 862.5 Output Total 350 2130 550 Balance 1256 -1430 312.5 PT 16.2 SEC (12.0-15.0) H 05/26/18 22:15 INR 1.28 (0.83-1.16) H 05/26/18 22:15 - Physical Exam Eyes: PERRL Ears, Nose, Mouth, Throat: moist mucous membranes, hearing normal Cardiovascular: regular rate and rhythym, No edema Respiratory: no respiratory distress, no rales or rhonchi, clear to auscultation Gastrointestinal: normoactive bowel sounds, soft, non-tender abdomen Skin: warm Neurologic: AAOx3 Psychiatric: interacting appropriately, not anxious, not encephalopathic Lymph, Heme, Immunologic: No petechiae ICD10 Worksheet Patient Problems: Problems Problem Status Onset Fever Acute Hyperthyroidism Acute
[2018-05-31] MEDS: predniSONE 20 MG TAB PO SCH (17:01)
[2018-06-01] MEDS: METHIMAZOLE 5 MG TAB PO SCH ×4 (02:19→12:35)
[2018-06-01 07:44] LABS: PLATELET COUNT 394 10^3/uL (150-400)
[2018-06-01] MEDS: DOCUSATE SODIUM 100 MG CAP PO SCH ×2 (10:49→20:49)
[2018-06-01] MEDS: POLYETHYLENE GLYCOL 3350 17 GM PKT PO SCH (10:50)
[2018-06-01] MEDS: PROPRANOLOL HCL 20 MG TAB PO SCH ×3 (11:35→20:50)
[2018-06-01] MEDS: predniSONE 20 MG TAB PO SCH ×2 (11:35→12:36)
[2018-06-01] MEDS: OMEPRAZOLE PO SCH (12:35)
[2018-06-01] MEDS: PROPYLTHIOURACIL 50 MG TAB PO SCH ×2 (13:11→19:09)
[2018-06-01] MEDS: POTASSIUM IODIDE 30 ML BTL PO SCH ×3 (13:11→20:54)
[2018-06-01] MEDS: DEXAMETHASONE 1.5 MG TAB PO SCH ×3 (13:11→20:51)
--- NOTE | 2018-06-01 14:30 | HOSPPROG ---
Hospitalist Progress Note Assessment/Plan: # hyperthyroid - US c/w Multinodular goiter (05/31) - TRAb negative - methimazole (admission --> 06/01) -PTU (start 06/01) - cont propranolol 20mg TID (limited by blood pressure) - APAP and ibp PRN. -Prednisone (05/31) --> changed to Dexamethasone on 06/01 -Radioactive Uptake scan is not an option as Iodine given for contrast study will compete and provide false positive #Neck pain, improved with Steroids #Left Subclavian LAD. Seen on US, 2.[address] Likely reactive. Will need f/u in 3 months # fever/leukocytosis - on admission he had both Fever and Leukocytosis. No abx were given. Both the fever and the Leukocytosis has resolved. Minimally elevated PC # complex renal cyst - MRI confirmed on 05/31. No e/o malignancy. Recommend f/u in 6 months with repeat MRI # lactic acidosis - resolved #Dehydration, resolved # anemia - unclear baseline # GERD - PPI changed to BID during this admission # UC - stable, has not been on medications for 3 years. 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 Start PTU, SSKI. Change Prednisone to Dexamethasone. For now will hold off on surgical consult hold IVF repeat thyroid studies in a.m. Subjective: still with neck pain but improving. still diaphoretic. afebrile. Objective: Vital Signs Temp Pulse Resp BP Pulse Ox 36.7 C 78 17 126/80 H 94 06/01/18 04:00 06/01/18 11:48 06/01/18 11:48 06/01/18 11:48 06/01/18 11:48 Laboratory Results 06/01/18 07:24 05/29/18 04:59 05/31/18 06/01/18 06/02/18 05:59 05:59 05:59 Intake Total 700 1262.5 Output Total 2130 850 Balance -1430 412.5 PT 16.2 SEC (12.0-15.0) H 05/26/18 22:15 INR 1.28 (0.83-1.16) H 05/26/18 22:15 - Time Spent With Patient Time Spent with Patient: greater than 35 minutes Time Spent with Patient: Greater than 35 minutes spent on this patients care, greater than 50% of time spent counseling, educating, and coordinating care regarding the above mentioned plan. - Physical Exam Constitutional: no apparent distress Eyes: PERRL, EOMI Ears, Nose, Mouth, Throat: moist mucous membranes, hearing normal Cardiovascular: regular rate and rhythym Respiratory: no respiratory distress, no rales or rhonchi, clear to auscultation Gastrointestinal: normoactive bowel sounds, soft, non-tender abdomen Skin: warm Neurologic: AAOx3 Psychiatric: interacting appropriately, not anxious, not encephalopathic Lymph, Heme, Immunologic: No petechiae ICD10 Worksheet Patient Problems: Problems Problem Status Onset Fever Acute Hyperthyroidism Acute
[2018-06-01] MEDS: PANTOPRAZOLE SODIUM 40 MG TAB PO SCH (20:49)
[2018-06-02] MEDS: PROPYLTHIOURACIL 50 MG TAB PO SCH ×5 (00:17→23:19)
[2018-06-02] MEDS: DEXAMETHASONE 1.5 MG TAB PO SCH ×4 (06:09→19:53)
[2018-06-02] MEDS: DOCUSATE SODIUM 100 MG CAP PO SCH ×2 (08:16→19:53)
[2018-06-02] MEDS: POLYETHYLENE GLYCOL 3350 17 GM PKT PO SCH (08:16)
[2018-06-02] MEDS: PROPRANOLOL HCL 20 MG TAB PO SCH ×2 (09:15→16:30)
[2018-06-02] MEDS: POTASSIUM IODIDE 30 ML BTL PO SCH ×3 (09:16→23:19)
[2018-06-02] MEDS: PANTOPRAZOLE SODIUM 40 MG TAB PO SCH ×2 (09:16→19:53)
--- NOTE | 2018-06-02 17:48 | HOSPPROG ---
Hospitalist Progress Note Assessment/Plan: # hyperthyroid - US c/w Multinodular goiter (05/31) - TRAb negative - methimazole (admission --> 06/01) -PTU (start 06/01) - Propranolol (admission --> 06/02. - APAP and ibp PRN. -Prednisone (05/31) --> changed to Dexamethasone on 06/01 -Radioactive Uptake scan is not an option as Iodine given for contrast study will compete and provide false positive #Neck pain, improved with Steroids #Left Subclavian LAD. Seen on US, 2.[address] Likely reactive. Will need f/u in 3 months # fever/leukocytosis - on admission he had both Fever and Leukocytosis. No abx were given. Both the fever and the Leukocytosis has resolved. Minimally elevated PC # complex renal cyst - MRI confirmed on 05/31. No e/o malignancy. Recommend f/u in 6 months with repeat MRI # lactic acidosis - resolved #Dehydration, resolved # anemia - unclear baseline # GERD - PPI changed to BID during this admission. Would continue x 1 month, then change to back to daily # UC - stable, has not been on medications for 3 years. 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 Will change Propranolol to PRN. If does not need overnight, can d/c w/o it cont PTU until seen by Supervisor Twisting Department cont Dexamethasone for a total of 3 days cont sski x 24 hrs consider d/c tomorrow with follow up with Endocrinology. They will contact him to set up an appointment but pt also needs their number just in case He will also need a number for GI in order for f/u He does not have a PCP and CM is working to arrange one. He will need f/u with them Plan was discussed with Dr. Sandeep Sage Subjective: feels better. neck pain is better. tests show improvement Objective: Vital Signs Temp Pulse Resp BP Pulse Ox 36.7 C 99 16 108/77 94 06/02/18 16:13 06/02/18 16:13 06/02/18 16:13 06/02/18 16:13 06/02/18 16:13 Laboratory Results 06/01/18 07:24 05/29/18 04:59 06/01/18 06/02/18 06/03/18 05:59 05:59 05:59 Intake Total 1262.5 700 400 Output Total 850 Balance 412.5 700 400 PT 16.2 SEC (12.0-15.0) H 05/26/18 22:15 INR 1.28 (0.83-1.16) H 05/26/18 22:15 - Physical Exam Constitutional: no apparent distress Eyes: PERRL Ears, Nose, Mouth, Throat: moist mucous membranes, hearing normal Cardiovascular: regular rate and rhythym, no murmur, rub, or gallop Respiratory: no respiratory distress, no rales or rhonchi Gastrointestinal: normoactive bowel sounds, soft, non-tender abdomen Skin: warm Musculoskeletal: full muscle strength Neurologic: AAOx3 Psychiatric: interacting appropriately, not anxious, not encephalopathic Lymph, Heme, Immunologic: No petechiae ICD10 Worksheet Patient Problems: Problems Problem Status Onset Fever Acute Hyperthyroidism Acute
[2018-06-02] MEDS ORDERED: PROPRANOLOL HCL 20 MG TAB PO PRN (17:51)
--- NOTE | 2018-06-02 21:59 | GCON ---
ENDOCRINOLOGY CONSULTATION DATE OF CONSULTATION: 06/02/2018 CHIEF COMPLAINT: The patient is a 47-year-old male whose chief complaint to me today is, "I moved he re in February from [place], and was fine until the end of April." HISTORY OF PRESENT ILLNESS: This patient has a past medical history remarkable for ulcerative coliti s, which he controls with probiotics and nabv-yjy-rjtyqdi medicines. 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 He has never had any thyroid problems before. His family history i s remarkable for a maternal aunt with hypothyroidism. At the end of April, after [place], he began to experience throat pain. When he describes hi s throat pain, he points to his neck and right to his thyroid gland and says that it was tender. The pain was on the left side more than on the right side. His pain was accompanied by odynophagia. He also admits that he has had some dysphasia for many years now going back at least 7 years. An EGD a t the age of 43 was unremarkable except for some GERD. He was sweating a lot at night. His sleep was poor. His energy went way down. He developed a fever which he says was as high as 102.3 at home. He was taking Tylenol on a regular basis to keep his fe kassidy under control. Altogether, he lost about 35 pounds of weight, and his appetite has been way down . He eventually sought care in the emergency room in May; this was May 21 initially. He was treated with IV fluid resuscitation. He was thought to have a bad viral illness, and was returned ho ar. One week later, on 05/27, he re-presented and had unstable vital signs at that point, with signi ficant tachycardia and a low blood pressure. His heart rate was recorded as high as 147 on admission . His temperature was never recorded higher than 37.8 degrees centigrade. He was thought to be in significant distress. Thyroid labs were drawn, and he was markedly hyperthyr oid. He was admitted to the hospital for hypertension, fluid resuscitation, and treatment of the hyp erthyroidism. He was initially started on methimazole and small doses of beta blockers. There was some concern abo ut increasing doses of beta blockers because of low blood pressure. He has been tolerating them bett er over time. His free T4 on admission was 5.74 and his free T3 was 15.7. Initially, his treatment consisted of propranolol and methimazole. He showed a very slow, glacier-like paced improvement over the first few days of his hospital stay. His pain resolved and then returned. He was placed on steroids initially on 05/31, and these have he lped a lot. Initially, he was put on prednisone, but this was changed to dexamethasone yesterday. Because of the persistence of symptoms, we changed him from methimazole to PTU to try and get a block age of the peripheral deiodinase enzyme. He was switched from prednisone to dexamethasone for the sa me reason. We started a saturated solution of potassium iodide as well. With this set of more aggre ssive treatment, his T3 has dropped down to 7.43, and his free T4 dropped from 6.4-5.83; we think we are starting to make some progress. REVIEW OF SYSTEMS: He is currently feeling much better today than he was even yesterday. He is not having any more neck pain or tenderness. He still has low energy and feels a little weak. He gets a little dizzy when he stands up, but nowhere near as bad as it was happening. He is not having any h eart palpitations. He denies any cough, wheezing, or shortness of breath. He has constipation, but this is a longstanding problem for him. He is not having any nausea or vomiting. His appetite is st ill low, but is returning. He has some proximal muscle weakness. He is not having any tremor. He i s not retaining any fluid. SOCIAL HISTORY: He denies tobacco use. His alcohol is 2 drinks per month. He is a daily marijuana user. ALLERGIES: He denies any allergies to any medications. MEDICATIONS: His only outpatient medication is eyae-jrd-vmxlnmn Prilosec. He does take several supp lements including a probiotic to help with his ulcerative colitis. In the hospital, he is currently on dexamethasone 1.5 mg 4 times daily, Colace 100 mg twice daily, MiraLAX 17 g per day, saturated xochilt ution of potassium iodine 0.6 mL t.i.d. ins a glass of water, propranolol 20 mg t.i.d., and PTU 200 m g q.6 hours. PHYSICAL EXAM: VITAL SIGNS: This morning his pulse rate is 74, and his blood pressure is 122/77. O vernight, his pulse was as low as 54. Afebrile, with a temperature of 36.6. He appears thin. HEAD AND NECK: Remarkable for a clearly visible thyroid gland that appears to be about 30-40 g in size, re latively symmetrical; I am unable to palpate a nodule. It is nontender today. There is no bruit. Danny toney does not have a tremor. He is not sweating excessively. SKIN: Normal. HEART, LUNGS, AND ABDOMEN : Unremarkable. He is not retaining any lower extremity fluid. LABORATORY DATABASE: His TSH remains suppressed, less than 0.015. His free T4 is 5.83. His free T3 is 7.43, down considerably from previous measurements. He had a TSH-receptor antibody test, and it was negative. He has not had a thyroid scan with uptake because he had iodinated contrast on admissi on. He had a thyroid ultrasound on 05/31, which showed modest thyromegaly and several small nodules, which appear to be 1 cm or under in diameter. There was no sign of an abscess. IMPRESSION: This patient presented with significant hyperthyroidism and a painful thyroid gland. Th e differential diagnosis of hyperthyroidism includes Graves disease, thyroiditis, exogenous levothyro xine and idiopathic causes. This patient's clinical course appears to be consistent with thyroiditis , though the level of his symptoms and the significant elevation of the T4 and T3 are unusual. I am glad to see that we got a thyroid ultrasound because bacterial infections of the thyroid gland d o occur, albeit uncommonly these days. In the absence of any abscess though this seems unlikely. I would have loved to have seen a thyroid scan with uptake to confirm the diagnosis, but unfortunatel y we cannot do that, so we will treat for thyroiditis. The negative thyroid thyrotropin-receptor ant ibody makes Graves disease unlikely. We recently changed from prednisone to dexamethasone, and from methimazole to PTU in the hopes that t hese 2 changes would help block peripheral conversion of T4 to T3, and the response in the free T3 a ppears to indicate that this was a useful change for this patient. He also seems clinically better t reginald. My overall suggestion is we continue SSKI for another day, complete a full 3 days of dexamethasone, a nd continue high-dose PTU as he transitions to outpatient treatment. We could also consider now tape ring down the propranolol or making it an as-needed medication. DIAGNOSES: 1. Hyperthyroidism. 2. Subacute thyroiditis. 3. History of ulcerative colitis. 4. Cannabis dependence. PLAN: 1. Continue SSKI 0.6 mL p.o. t.i.d. for 1 more day, then discontinue. 2. Continue dexamethasone 1.5 mg 4 times daily for 2 more days, then discontinue. 3. Continue PTU 200 mg 4 times daily, then transition to outpatient treatment on this same dose. 4. Consider tapering off propranolol or changing to a p.r.n. dose. 5. I will be happy to see him in my outpatient clinic, but unfortunately I am in transition from one clinic to another and cannot give an appointment right now. Thank you for allowing me to consult on this pleasant gentleman. /[id number]/MODL
[2018-06-02] MEDS ORDERED: POTASSIUM IODIDE 30 ML BTL PO SCH (22:00)
[2018-06-03] MEDS ORDERED: PROPYLTHIOURACIL 50 MG TAB PO SCH
[2018-06-03] MEDS ORDERED: DEXAMETHASONE 1.5 MG TAB PO SCH
[2018-06-03] MEDS: PROPYLTHIOURACIL 50 MG TAB PO SCH ×3 (05:49→16:49)
[2018-06-03] MEDS: DEXAMETHASONE 1.5 MG TAB PO SCH ×3 (05:52→16:51)
[2018-06-03] MEDS: POLYETHYLENE GLYCOL 3350 17 GM PKT PO SCH (08:55)
[2018-06-03 09:26] VITALS: BP 129/83
[2018-06-03] MEDS: DOCUSATE SODIUM 100 MG CAP PO SCH (09:28)
[2018-06-03] MEDS: PANTOPRAZOLE SODIUM 40 MG TAB PO SCH (09:31)
[2018-06-03] MEDS: POTASSIUM IODIDE 30 ML BTL PO SCH ×2 (09:31→16:52)
--- NOTE | 2018-06-03 16:15 | ASMTCMCOM ---
CM Note CM Note Notes: Patient discussed during medical rounds, he has improved and will likely be discharged home today with family support. Discussed discharge with medications, dexamethasone and propylthiouricil MAP to pharmacy. CM to follow. D/C Plan: home independent. Date Signed: 06/03/2018 04:15 PM Electronically Signed By:Serenity Hoang
--- NOTE | 2018-06-03 19:52 | PDDCSUM ---
Discharge Summary Discharge Summary: Date of Admission: May 26, 2018 Date of Discharge: June 02, 2018 Discharge Diagnoses: Hyperthyroidism Neck pain Multinodular toxic goiter Left subclavian lymphadenopathy, likely reactive Fever/leukocytosis, resolved Complex renal cyst Anemia Coagulopathy, mild GERD Ulcerative colitis, chronic Admission Diagnoses: Hyperthyroidism Dehydration Fevers and leukocytosis Lactic acidosis Anemia Hyperglycemia Right kidney cyst GERD Ulcerative colitis Consultants: Endocrinology-Dr. Tate [facility] Hospital Course: The patient is a 47-year-old male who presented to the ED after 3 weeks of feeling extreme fatigue, fevers, abdominal pain, and cramping. He also noted increased hoarseness of voice, 20 lb unintentional weight loss, increased anxiety/stress, and generalized weakness. He was found to be very tachycardic and hyperthyroid. Patient was initially placed on methimazole and propranolol and steroid and potassium iodide (SSKI). Endocrinology was consulted and switched the patient from methimazole to PTU. Patient felt improved and was discharged home with a regimen for hypothyroidism. Physical Exam: General: The patient is a male who is alert and in no acute distress. HEENT: normocephalic, extraocular movements intact, conjunctivae clear, no lesions on face. Nares and oral mucosa pink and moist. Neck: trachea midline, +goiter. Resp: unlabored breathing. Abd: soft and nondistended. Musculoskeletal: Normal muscle tone and bulk. Neuro: cranial nerves II - XII grossly intact. Intact gross motor and sensory function. Psych: appropriate mood/affect. Skin: no pallor. Condition: Stable. Discharged to: Home. Pertinent tests/labs/imaging: Abd/pelv CT w/ contrast: Impression: 1. No evidence for active colitis or bowel obstruction. 2. Nonsimple cystic right renal lesion. Recommend nonemergent MRI of the kidneys without and with contrast for further evaluation and correlation with urinalysis. Differential diagnosis includes transitional neoplasm, complex cyst and pyelonephritis. 3. Nonobstructive left nephrolithiasis. Chest CT w/ contrast: Thickened aryepiglottic folds. Otherwise negative. Abd MRI: Impression: Nonspecific lesion in the midpole right kidney posteriorly. This probably represents a complex cyst with a portion having hemorrhage or proteinaceous debris. With the lack of adjacent parenchymal edema or perinephric stranding, a focal pyelonephritis is less likely. With the lack of abnormal enhancement, renal neoplasm is unlikely. Recommend six-month follow-up MRI without and with contrast. Head/Neck US: Impression: 1. Thyromegaly with likely numerous ill-defined, indistinct nodules bilaterally (multinodular goiter ). 2. There is a 2.2 cm left supraclavicular lymph node, somewhat larger than normal and possibly reactive. Recommend 3 month follow-up to ensure stability or resolution. TSH: <0.015 Free T4: 5.74 Free T3 15.7. Hgb 11.2. Medications: Please see med rec form. Continue SSKI po TID today. Continue dexamethasone 1.5mg QID through tomorrow. Continue PTU 200mg QID until seeing Bond Underwriter in the office. Propanolol 20mg TID prn tachycardia. Special instructions: Recommend that pt do activity as tolerated and avoid overexertion. Follow up: Endocrinology - 2 weeks. PCP - 1 week. > 30 minutes of total time was spent on counseling and coordination of care for this patient's discharge.
== END 2018-06-03 17:22 | disposition home or self-care (01) | DRG 427 ==
LOC: INTOOBSV 23:32 → F1N 05-27 00:35 → OBSVTOIN 05-27 15:14
PROVIDERS: ADMIT Family Medicine; ATTEND Family Medicine
DX: E05.20 Thyrotoxicosis with toxic multinodular goiter without thyrotoxic crisis or storm (principal); D68.9 Coagulation defect, unspecified; N28.1 Cyst of kidney, acquired; K51.80 Other ulcerative colitis without complications; E86.0 Dehydration; R59.1 Generalized enlarged lymph nodes; D64.9 Anemia, unspecified; K21.9 Gastro-esophageal reflux disease without esophagitis; N20.0 Calculus of kidney
CPT/HCPCS: 84481-90; A9585; J1885; J2405; J2550; J7512; Q9967